=== PATIENT | male | born 1960 | race Caucasian/White ===

== ENCOUNTER 2016-09-09 18:57 | Emergency (ER) | payer OTHER ==
[~2016-09-09] VITALS: Ht 170.2 cm; Wt 75.5 kg
[~2016-09-09 18:57] MED LIST: ASPI-535; ATEN-51; CLON-412; LISI-313; NITR0.4T28; SIMV80TA
[2016-09-09 19:00] VITALS: Ht 170.2 cm; Wt 75.5 kg
--- NOTE | 2016-09-09 19:50 | ERD ---
ER Documentation Chief Complaint Date/Time DATE: 09/09/16 TIME: 19:48 Chief Complaint suture removal left 3rd finger. 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 Patient denies any fever or chills. Patient denies any pain. Patient denies any discharge coming from the area. Patient states that he has been following up with outpatient doctor for this, today, he is here for suture removal. Patient denies any other symptoms. Patient denies any pain. ROS All systems reviewed and are negative except as per history of present illness. Medications Home Meds Reported Medications Nitroglycerin (Nitroquick) 0.4 Mg Tab.subl 10/10/10 Clonazepam* (Klonopin*) 1 Mg Tablet 10/10/10 Aspirin Ec (Aspir 81) 81 Mg Tablet. 10/10/10 Simvastatin* (Zocor*) 80 Mg Tablet 10/10/10 Lisinopril* (Lisinopril*) 5 Mg Tablet 10/10/10 Atenolol* (Atenolol*) 25 Mg Tablet 10/10/10 Allergies Allergies: Coded Allergies: No Known Allergy (Verified , 09/09/16) PMhx/Soc Medical and Surgical Hx: pt denies Medical Hx, pt denies Surgical Hx History of Surgery: No (no medical history or surgical history) Anesthesia Reaction: No Hx Neurological Disorder: No Hx Respiratory Disorders: No Hx Cardiac Disorders: No Hx Psychiatric Problems: No Hx Miscellaneous Medical Probl: No Hx Alcohol Use: No Hx Substance Use: No Hx Tobacco Use: Yes (daily) Smoking Status: Current every day smoker FmHx Family History: No coronary disease, No diabetes, No other Physical Exam Vitals Vital Signs Date Time Temp Pulse Resp B/P Pulse Ox O2 Delivery O2 Flow Rate FiO2 09/09/16 19:00 97.6 104 20 130/88 97 Physical Exam GENERAL: The patient is well developed and appropriate for usual state of health, in no apparent distress. CHEST: Clear to auscultation bilaterally. There are no rales, wheezes or rhonchi. HEART: Regular rate and rhythm. No murmurs, clicks, rubs or gallops. No S3 or S4. ABDOMEN: Soft, nontender and nondistended. Good bowel sounds. No rebound or guarding. No gross peritonitis. No gross organomegaly or masses. No Cedillo sign or McBurney point tenderness. BACK: No midline or flank tenderness. EXTREMITIES: Equal pulses bilaterally. There is no peripheral clubbing, cyanosis or edema. No focal swelling or erythema. Full range of motion. Grossly neurovascularly intact. NEURO: Alert and oriented. Cranial nerves 2-12 intact. Motor strength in all 4 extremities with 5/5 strength. Sensation grossly intact. Normal speech and gait. SKIN: There is a healing laceration wound noted on the left third finger, sutures are in place, this was removed without any difficulty, no gaping of the wound noted some maceration of the skin because of moisture but no pus coming from the area. Noted healing laceration avulsion wound on the left fourth finger , no sutures are in place, as per patient there was a dissolvable suture was placed, no symptoms of any infection, and symptoms of redness. There is no apparent rash or petechia. The skin is warm and dry. HEMATOLOGIC AND LYMPHATIC: There is no evidence of excessive bruising or lymphedema. No gross cervical, axillary, or inguinal lymphadenopathy. Procedures/MDM Medical decision making: Patient's wound was healing well, sutures removed without any difficulty, no gaping of the wound, there is some maceration of the skin, patient will be given antibiotics to prevent infection of affected area. Patient was advised to follow-up with primary care doctor in 3 days for reevaluation and symptoms of neurovascular compromise. Patient was advised of treatment center because for symptoms of infection. Rx Clindamycin Departure Diagnosis: Primary Impression: Encounter for wound re-check Additional Impression: Visit for suture removal Condition: Stable Patient Instructions: Wound Check, Lac F/U (No Infection) WANDA MADISON NP Sep 09, 2016 19:50
[2016-09-09] MEDS ORDERED: CLIN-73 PO (20:57)
== END 2016-09-09 20:45 | disposition home or self-care (01) ==
LOC: FTE 18:57
DX: Z48.02 Encounter for removal of sutures (principal); F17.210 Nicotine dependence, cigarettes, uncomplicated; Z79.82 Long term (current) use of aspirin
CPT/HCPCS: 99283

== ENCOUNTER 2018-11-14 03:03 | Emergency (ER) | payer OTHER ==
[~2018-11-14] VITALS: Wt 80.5 kg
[~2018-11-14 03:03] MED LIST changes: +CLIN300C10 PO
[2018-11-14 03:07] VITALS: BP 149/103; PULSE 101; RESP 18
--- NOTE | 2018-11-14 04:20 | ERD ---
ER Documentation Chief Complaint Chief Complaint R KNEE PAIN X'S 2 WEEKS HPI This is a 58-year-old male presents to the ED complaining of right knee swelling and pain, progressively worsening over the past 2 weeks. Patient denies any trauma. Denies any numbness, tingling or focal weakness. Denies any fevers or chills. Denies any shortness of breath, chest pain or any other symptoms. He states he has a history of this and is currently taking oxycodone for pain. Pain is worse with ambulation and with flexion extension of the knee. ROS All systems reviewed and are negative except as per history of present illness. Medications Home Meds Active Scripts Clindamycin Hcl* (Clindamycin Hcl*) 300 Mg Capsule, 300 MG PO TID for 10 Days, CAP Prov:WANDA MADISON NP 09/09/16 Reported Medications Nitroglycerin (Nitroquick) 0.4 Mg Tab.subl 10/10/10 Clonazepam* (Klonopin*) 1 Mg Tablet 10/10/10 Aspirin Ec (Aspir 81) 81 Mg Tablet. 10/10/10 Simvastatin* (Zocor*) 80 Mg Tablet 10/10/10 Lisinopril* (Lisinopril*) 5 Mg Tablet 10/10/10 Atenolol* (Atenolol*) 25 Mg Tablet 10/10/10 Allergies Allergies: Coded Allergies: No Known Allergy (Verified , 09/09/16) PMhx/Soc History of Surgery: No (no medical history or surgical history) Anesthesia Reaction: No Hx Neurological Disorder: No Hx Respiratory Disorders: No Hx Cardiac Disorders: No Hx Psychiatric Problems: No Hx Miscellaneous Medical Probl: No Hx Alcohol Use: No Hx Substance Use: No Hx Tobacco Use: Yes (daily) Physical Exam Vitals Vital Signs Date Temp Pulse Resp B/P (MAP) Pulse Ox O2 O2 Flow FiO2 Time Delivery Rate 11/14/18 98.1 101 18 149/103 98 03:07 (118) Physical Exam Const: No acute distress Head: Atraumatic Eyes: Normal Conjunctiva ENT: Normal External Ears, Nose and Mouth. Neck: Full range of motion. No meningismus. Resp: Clear to auscultation bilaterally Cardio: Regular rate and rhythm, no murmurs Skin: No petechiae or rashes Back: No midline or flank tenderness Ext: + Mild right knee effusion, no warmth or erythema. minimal tenderness to palpation along the medial joint line. Full range of motion of the right knee. Negative Homans sign. left knee normal. Neur: Awake and alert Psych: Normal Mood and Affect Procedures/MDM PROCEDURES: Knee immobilizer Splint Assessment: Neurovascularly intact post splint placement with good fit. MEDICAL DECISION MAKIN-year-old male presents with atraumatic left knee pain and swelling. We discussed risks and benefits of arthrocentesis and decided to defer at this time. He has no evidence of septic arthritis, gout or osteomyelitis. Patient was placed in a knee immobilizer splint for comfort, and given Rx Naprosyn. I recommended nonweightbearing as this could exacerbate her symptoms. He was told to follow-up with his regular doctor next week. Strict return precautions were discussed. PRESCRIPTIONS: Naprosyn, pt has oxycodone at home care assistant FOLLOW UP RECOMMENDED: Ortho Patient has been advised to follow up with primary care in 1-2 days. Blood Pressure Assessment: Patient's blood pressure was elevated (>120/80) but appears stable without evidence of hypertension emergency or urgency. The patient was counseled about the risks of hypertension and urged to pursue outpatient monitoring and therapy within a week with their primary care physician. Departure Diagnosis: Primary Impression: Knee effusion Laterality: right Qualified Codes: M25.461 - Effusion, right knee Condition: Stable Patient Instructions: Knee Effusion Referrals: [facility] 7 a.m.- 11 p.m. Every Day of the Week NO APPOINTMENT OR AUTHORIZATION NEEDED Additional Instructions: Continue to wear the knee immobilizer for the next 1 week. You must remain nonweightbearing as any excess walking or exercise may worsen your pain. Continue taking the oxycodone and ibuprofen for any pain. If you start to notice increasing swelling, redness, pain or fevers, return here. Otherwise, follow-up with your primary care provider in the next 1 week. JOE HARRINGTON PA-C November 14, 2018 04:20
[2018-11-14] MEDS ORDERED: NAPR-985 PO (04:21)
== END 2018-11-14 04:34 | disposition home or self-care (01) ==
LOC: FTE 03:03
DX: M25.461 Effusion, right knee (principal); Z79.82 Long term (current) use of aspirin; Z87.891 Personal history of nicotine dependence